=== PATIENT | male | born 1995 | race Caucasian/White ===

== ENCOUNTER 2016-11-23 12:13 | Emergency (ER) | payer OTHER ==
[~2016-11-23] VITALS: Ht 172.7 cm; Wt 61.3 kg
[2016-11-23 12:25] VITALS: BP 139/70; PULSE 68; RESP 16; TEMP 98.3; O2SAT 100
[2016-11-23 12:40] VITALS: O2SAT 100
[2016-11-23] MEDS ORDERED: SODIUM CHLORIDE 0.9% FLUSH 5 ML FLUSH IVF PRN (12:45)
--- NOTE | 2016-11-23 12:52 | PD ---
HPI Chief Complaint: Respiratory Symptoms Time Seen by Provider: 12:51 Travel History International Travel<30 days: No Contact w/Intl Traveler<30days: No Traveled to known affect area: No History of Present Illness HPI Patient is a 21-year-old male sent in with chief complaint of difficulty taking a deep breath and dizziness for one month. He reports this happens 4-5 times daily. They last for 20 minutes approximately. There are not exertional. 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 No palliative factors. He denies any syncopal episodes. He states he has felt fatigued however he does smoke tobacco and marijuana daily. Hedenies wheezing states for the last 2 weeks he has had a cough with light green sputum production. Her last several days he has had some intermittent left-sided right-sided lateral rib discomfort with coughing. He denies fever was as intermittent nasal congestion. Denies ear pain and sore throat. Denies myalgias. He states he gets the shortness of breath he will sometimes gets tingling in his toes or fingers. He has a history of depression and anxiety and states he is very stressed right now. Occasional alcohol use, denies any other illicit drugs. Denies myalgias, fevers, pedal edema or swelling, VILLAGRAN and history of DVT/PE. He does not have a PCP. Currently asymptomatic. [facility] Past Medical History Medical History: Denies Significant Hx Tetanus Vaccination: > 5 Years Influenza Vaccination: No Past Surgical History Surgical History: No Previous Surgery Social History Alcohol Use: Yes (Occ.) Tobacco Use: Yes (1/2 PPD) Substance Use: Yes (Marijuana daily) Allergies-Medications (Allergen,Severity, Reaction): Coded Allergies: No Known Allergies (Unverified , 11/23/16) Reported Meds & Prescriptions Reported Meds & Active Scripts Active No Active Prescriptions or Reported Medications Review of Systems Except as stated in HPI: all other systems reviewed are Neg Physical Exam Narrative GENERAL: Well-developed and well-nourished adult male in no acute distress. SKIN: Warm and dry. Good turgor without tenting. HEAD: Normocephalic and atraumatic. EYES: PERRL bilaterally, 5mm. EOMI bilaterally. No injection or icterus present. No proptosis. Lids without edema or erythema. ENT: Nasal mucosa pink and moist without discharge, septum intact and midline. Buccal mucosa pink and moist. Oropharynx free of erythema, tonsillar hypertrophy , masses, swelling, asymmetry and exudates. Uvula midline and airway patent. NECK: Supple, no meningeal signs. Trachea midline, no JVD. No cervical or facial lymphadenopathy. CARDIOVASCULAR: Regular rate and rhythm without murmurs, rubs, clicks or gallops. Radial and posterior tibial pulses 2+ bilaterally. No pedal edema. Negative bilateral Homans sign. RESPIRATORY: Clear to auscultation bilaterally with symmetrical rise and fall, no distress or use of accessory muscles. Speaks in full sentences. No stridor , tripoding or drooling. GASTROINTESTINAL: Non-tender, non-distended. Normal bowel sounds all 4 quadrants. No masses or organomegaly present. MUSCULOSKELETAL: Some tenderness to palpation of the anterior lateral ribs bilaterally without crepitus or step-offs. No gait disturbances. Patient freely moving all four extremities spontaneously. Extremities without clubbing, cyanosis, or edema. No obvious deformities. NEUROLOGIC: CN II-XII grossly intact. Awake and alert. Motor grossly within normal limits. Normal speech. PSYCHIATRIC: Appropriate mood and affect; insight and judgment normal. Data Data Last Documented VS Vital Signs Date Time Temp Pulse Resp B/P Pulse Ox O2 Delivery O2 Flow Rate FiO2 11/23/16 13:30 74 16 133/68 96 Room Air 133/71 11/23/16 12:25 98.3 Orders Electrocardiogram (11/23/16 12:42) Basic Metabolic Panel (Bmp) (11/23/16 12:42) Complete Blood Count With Diff (11/23/16 12:42) Magnesium (Mg) (11/23/16 12:42) Prothrombin Time / Inr (Pt) (11/23/16 12:42) Act Partial Throm Time (Ptt) (11/23/16 12:42) Troponin I (11/23/16 12:42) Ecg Monitoring (11/23/16 12:42) Bilateral Bp Monitoring (11/23/16 12:42) Iv Access Insert/Monitor (11/23/16 12:42) Oximetry (11/23/16 12:42) Oxygen Administration (11/23/16 12:42) Sodium Chloride 0.9% Flush (Ns Flush) (11/23/16 12:45) Chest, Pa & Lat (11/23/16 12:42) B-Type Natriuretic Peptide (11/23/16 12:42) D-Dimer (11/23/16 12:50) Labs Laboratory Tests Test 11/23/16 12:50 White Blood Count 8.5 TH/MM3 Red Blood Count 4.94 MIL/MM3 Hemoglobin 14.9 GM/DL Hematocrit 43.0 % Mean Corpuscular Volume 87.0 FL Mean Corpuscular Hemoglobin 30.1 PG Mean Corpuscular Hemoglobin 34.6 % Concent Red Cell Distribution Width 12.1 % Platelet Count 267 TH/MM3 Mean Platelet Volume 9.1 FL Neutrophils (%) (Auto) 63.2 % Lymphocytes (%) (Auto) 27.5 % Monocytes (%) (Auto) 7.2 % Eosinophils (%) (Auto) 1.3 % Basophils (%) (Auto) 0.8 % Neutrophils # (Auto) 5.4 TH/MM3 Lymphocytes # (Auto) 2.3 TH/MM3 Monocytes # (Auto) 0.6 TH/MM3 Eosinophils # (Auto) 0.1 TH/MM3 Basophils # (Auto) 0.1 TH/MM3 CBC Comment DIFF FINAL Differential Comment Prothrombin Time 12.0 SEC Prothromb Time International 1.1 RATIO Ratio Activated Partial 31.3 SEC Thromboplast Time D-Dimer Quantitative (PE/DVT) 0.20 MG/L FEU Sodium Level 143 MEQ/L Potassium Level 3.7 MEQ/L Chloride Level 106 MEQ/L Carbon Dioxide Level 30.0 MEQ/L Anion Gap 7 MEQ/L Blood Urea Nitrogen 12 MG/DL Creatinine 1.10 MG/DL Estimat Glomerular Filtration 84 ML/MIN Rate Random Glucose 95 MG/DL Calcium Level 9.4 MG/DL Magnesium Level 2.4 MG/DL Troponin I LESS THAN 0.02 NG/ML B-Type Natriuretic Peptide 3 PG/ML MDM Medical Decision Making Medical Screen Exam Complete: Yes Emergency Medical Condition: Yes Interpretation(s) Laboratory Tests Test 11/23/16 12:50 White Blood Count 8.5 TH/MM3 (4.0-11.0) Red Blood Count 4.94 MIL/MM3 (4.50-5.90) Hemoglobin 14.9 GM/DL (13.0-17.0) Hematocrit 43.0 % (39.0-51.0) Mean Corpuscular Volume 87.0 FL (80.0-100.0) Mean Corpuscular Hemoglobin 30.1 PG (27.0-34.0) Mean Corpuscular Hemoglobin 34.6 % Concent (32.0-36.0) Red Cell Distribution Width 12.1 % (11.6-17.2) Platelet Count 267 TH/MM3 (150-450) Mean Platelet Volume 9.1 FL (7.0-11.0) Neutrophils (%) (Auto) 63.2 % (16.0-70.0) Lymphocytes (%) (Auto) 27.5 % (9.0-44.0) Monocytes (%) (Auto) 7.2 % (0.0-8.0) Eosinophils (%) (Auto) 1.3 % (0.0-4.0) Basophils (%) (Auto) 0.8 % (0.0-2.0) Neutrophils # (Auto) 5.4 TH/MM3 (1.8-7.7) Lymphocytes # (Auto) 2.3 TH/MM3 (1.0-4.8) Monocytes # (Auto) 0.6 TH/MM3 (0-0.9) Eosinophils # (Auto) 0.1 TH/MM3 (0-0.4) Basophils # (Auto) 0.1 TH/MM3 (0-0.2) CBC Comment DIFF FINAL Differential Comment Prothrombin Time 12.0 SEC (9.8-11.6) Prothromb Time International 1.1 RATIO Ratio Activated Partial 31.3 SEC Thromboplast Time (24.3-30.1) D-Dimer Quantitative (PE/DVT) 0.20 MG/L FEU (0.00-0.50) Sodium Level 143 MEQ/L (136-145) Potassium Level 3.7 MEQ/L (3.5-5.1) Chloride Level 106 MEQ/L (98-107) Carbon Dioxide Level 30.0 MEQ/L (21.0-32.0) Anion Gap 7 MEQ/L (5-15) Blood Urea Nitrogen 12 MG/DL (7-18) Creatinine 1.10 MG/DL (0.60-1.30) Estimat Glomerular Filtration 84 ML/MIN (>89) Rate Random Glucose 95 MG/DL (74-106) Calcium Level 9.4 MG/DL (8.5-10.1) Magnesium Level 2.4 MG/DL (1.5-2.5) Troponin I LESS THAN 0.02 NG/ML (0.02-0.05) B-Type Natriuretic Peptide 3 PG/ML (0-100) Differential Diagnosis Acute bronchitis versus pneumonia versus arrhythmia versus anxiety versus dehydration versus substance abuse versus hypoglycemia versus electrolyte disorder ACS unlikely versus PE unlikely Narrative Course Patient is a 21-year-old male with daily tobacco and marijuana use was otherwise healthy presenting with 4-5 episodes of vomiting in the breath and lightheadedness without syncope for 1 month. Nasal cough and sputum production over the last 2 weeks and feels like he has a cold as he calls it. He does relate this to worsening symptoms. Yesterday she says some discomfort in the bilateral ribs anteriorly but no jessie chest pain or exertional pain. No history or signs of DVT. Oxygen saturation is 100% on room air and he is not tachypneic and has clear lung sounds with no increased work of breathing. No signs of overt heart failure. As this seems related to wearing a respirator and he has a history of anxiety and this is highly suggestive of panic disorder versus likely etiology however other emergent causes cannot be ruled out. Ordered EKG, chest x-ray and labs including troponin and d-dimer. EKG shows sinus rhythm with rate of 61. Normal intervals and axis. T-wave inversion in lead V2, no other ST-T changes. CBC unremarkable. Metabolic panel shows creatinine 1.10. Troponin less than 0.02. BNP 3. INR 1.1, d-dimer 0.20. Chest x-ray shows no acute cardiopulmonary disease. At this time there is no emergent expiration or cause for this patient's symptoms however given that he offers that he has had a lot of anxiety and stress and his symptoms sound similar distress response/panic disorder we'll prescribe hydroxyzine to help with this. He does have some costochondritis from likely cold symptoms and will prescribe diclofenac for this. Recommend he stop smoking and using marijuana daily as this will contribute chronic fatigue. Follow-up with his PCP for further evaluate in 2-3 days.See discharge paperwork for further instructions. The plan was discussed with the patient who acknowledged their understanding and agreement. Reinforced the follow-up with primary care is critically important. Patient instructed on emergent conditions that should prompt return to ED. Diagnosis Primary Impression: Dyspnea Qualified Code: R06.00 - Dyspnea, unspecified type Additional Impressions: Dizziness Costochondritis Anxiety Patient Instructions: Costochondritis (ED), Dizziness (ED), Dyspnea (ED), General Instructions Additional Instructions: Take medications as prescribed Recommend drinking lots of fluids to stay well-hydrated Recommend stop smoking cigarettes and marijuana as this will contribute to chronic fatigue and poor lung health Apply warm, moist heat to painful ribs every 1 to 2 hours as needed Avoid maneuvers that aggravate pain Important to take 10 full, deep breaths in and out every 30 minutes until pain resolves to avoid complications including pneumonia Follow-up with your PCP in 2-3 days Return to the ED with any acute worsening of symptoms Med/Other Pt SpecificInfo: Prescription(s) given Scripts Hydroxyzine HCl 25 Mg Tab25 Mg PO TID PRN (ANXIETY) #20 TAB Prov:Sofia Wylie MD 11/23/[address] 50 Mg Tabdr50 Mg PO BID #14 TAB Prov:Sofia Wylie MD 11/23/16 Disposition: 01 DISCHARGE HOME Condition: Stable Ricky Meyers III Nov 23, 2016 12:52
[2016-11-23 13:01] LABS: AUTOMATED NEUTROPHIL # 5.4 TH/MM3 (1.8-7.7); BASOPHIL # 0.1 TH/MM3 (0-0.2); BASOPHIL % 0.8 % (0.0-2.0); EOSINOPHIL # 0.1 TH/MM3 (0-0.4); EOSINOPHIL % 1.3 % (0.0-4.0); HEMO FLAGS DIFF FINAL; LYMPH % 27.5 % (9.0-44.0); LYMPHOCYTE # 2.3 TH/MM3 (1.0-4.8); MEAN CORPUSCULAR HEMOGLOBIN 30.1 PG (27.0-34.0); MEAN CORPUSCULAR HGB CONC 34.6 % (32.0-36.0); MONO % 7.2 % (0.0-8.0); NEUT % 63.2 % (16.0-70.0); PLATELET COUNT 267 TH/MM3 (150-450); RED BLOOD COUNT 4.94 MIL/MM3 (4.50-5.90); RED CELL DISTRIBUTION WIDTH 12.1 % (11.6-17.2); WHITE BLOOD COUNT 8.5 TH/MM3 (4.0-11.0)
[2016-11-23 13:09] LABS: CHLORIDE 106 MEQ/L (98-107); POTASSIUM 3.7 MEQ/L (3.5-5.1); SODIUM (NA) 143 MEQ/L (136-145)
[2016-11-23 13:12] LABS: ANION GAP 7 MEQ/L (5-15); BLOOD UREA NITROGEN 12 MG/DL (7-18); MAGNESIUM 2.4 MG/DL (1.5-2.5)
[2016-11-23 13:15] LABS: GLOMERULAR FILTRATION RATE 84 ML/MIN (>89)
[2016-11-23 13:19] LABS: APTT (PATIENT) 31.3 SEC (24.3-30.1); INTERNATIONAL NORMALIZED RATIO 1.1 RATIO
[2016-11-23 13:30] VITALS: BP_SYST 133; BP_DIAS 68; BP_DIAS 71; PULSE 74; RESP 16; O2SAT 96
--- NOTE | 2016-11-23 13:32 | RADHPO ---
EXAM DATE/TIME: 11/23/2016 13:02 [facility] COMPARISON: No previous studies available for comparison. INDICATIONS : Chest pain MEDICAL HISTORY : None. SURGICAL HISTORY : None. ENCOUNTER: Initial ACUITY: 3 days PAIN SCORE: 8/10 LOCATION: Bilateral chest FINDINGS: PA and lateral views of the chest demonstrate the lungs to be symmetrically aerated without evidence of mass, infiltrate or effusion. The cardiomediastinal contours are unremarkable. Osseous structure s are intact. CONCLUSION: No acute disease. Ricky Goodrich MD on November 23, 2016 at 13:30 Board Certified Radiologist. This report was verified electronically.
[2016-11-23] MEDS ORDERED: HYDR-3133 PO (13:40)
[2016-11-23] MEDS ORDERED: DICL50TA3 PO (13:40)
--- NOTE | 2016-11-24 14:12 | EKG ---
Date Performed: 11/23/2016 Time Performed: 13:00:16 PTAGE: 21 years EKG: Sinus arrhythmia Septal T wave changes are borderline abnormal Borderline ECG NO PREVIOUS TRACING DOCTOR: Jorge Wilkinson Interpretating Date/Time 11/24/2016 14:10:19
== END 2016-11-23 14:00 | disposition home or self-care (01) ==
LOC: PHEFT 12:13
DX: R06.00 Dyspnea, unspecified (principal); R42 Dizziness and giddiness; M94.0 Chondrocostal junction syndrome [Tietze]; I49.8 Other specified cardiac arrhythmias; F41.9 Anxiety disorder, unspecified; F17.210 Nicotine dependence, cigarettes, uncomplicated
CPT/HCPCS: 71020; 80048; 83735; 83880; 84484; 85025; 85379; 85610; 85730; 93005

== ENCOUNTER 2017-04-04 17:34 | Emergency (ER) | payer OTHER ==
[~2017-04-04] VITALS: Ht 170.2 cm; Wt 62.0 kg
[~2017-04-04 17:34] MED LIST: DICL50TA3 PO; HYDR-3133 PO
[2017-04-04 17:38] VITALS: BP 133/68; PULSE 53; RESP 16; TEMP 98.3; O2SAT 98
--- NOTE | 2017-04-04 17:47 | PD ---
HPI Chief Complaint: Skin Problem Time Seen by Provider: 17:44 Travel History International Travel<30 days: No Contact w/Intl Traveler<30days: No Traveled to known affect area: No History of Present Illness HPI 21 year old male presents to the ED for evaluation of one week history of painful, reddened "bump" of the skin of the right anterolateral abdomen. He denies fever, chills, nausea, vomiting. Patient denies injury to the area. He denies previous history of MRSA. States that he had a similar bump in the same area which healed on its own. PFSH Social History Alcohol Use: Yes (Occ.) Tobacco Use: Yes (1/2 PPD) Substance Use: Yes (Marijuana daily) Allergies-Medications (Allergen,Severity, Reaction): Coded Allergies: No Known Allergies (Unverified , 04/04/17) Reported Meds & Prescriptions Reported Meds & Active Scripts Active Keflex (Cephalexin) 250 Mg Cap 250 Mg PO Q6H 10 Days Bactrim DS (Sulfamethoxazole-Trimethoprim) 800-160 Mg Tab 1 Tab PO BID Review of Systems Except as stated in HPI: all other systems reviewed are Neg Physical Exam Narrative GENERAL: Well-nourished, well-developed white male in no acute distress. SKIN: Focused skin assessment warm/dry.SKIN: There is an indurated area in the right anterior lateral abdomen which measures about 4 cm in diameter. It is fluctuant but there is no pointing or drainage. There is a zone of inflammation around it but no lymphangitis. HEAD: Normocephalic. EYES: No scleral icterus. No injection or drainage. NECK: Supple, trachea midline. No JVD or lymphadenopathy. CARDIOVASCULAR: Regular rate and rhythm without murmurs, gallops, or rubs. RESPIRATORY: Breath sounds equal bilaterally. No accessory muscle use. GASTROINTESTINAL: Abdomen soft, non-tender, nondistended. MUSCULOSKELETAL: No cyanosis, or edema. Ambulatory and moves extremities spontaneously. BACK: Nontender without obvious deformity. No CVA tenderness. Data Data Last Documented VS Vital Signs Date Time Temp Pulse Resp B/P Pulse Ox O2 Delivery O2 Flow Rate FiO2 04/04/17 17:38 98.3 53 16 133/68 98 Orders Wound Culture And Gram Stain (04/04/17 17:55) MDM Medical Decision Making Medical Screen Exam Complete: Yes Emergency Medical Condition: Yes Differential Diagnosis Insect bite versus abscess versus cellulitis versus furuncle versus carbuncle versus other Narrative Course 21 year old male presents to the ED for evaluation of one week history of painful, reddened "bump" of the skin of the right anterolateral abdomen. He denies fever, chills, nausea, vomiting. Patient denies injury to the area. He denies previous history of MRSA. States that he had a similar bump in the same area which healed on its own. Vitals reviewed. physical exam reveals an indurated area in the right anterior lateral abdomen which measures about 4 cm in diameter. It is fluctuant but there is no pointing or drainage. There is a zone of inflammation around it but no lymphangitis. Abscess I&D was performed. Wound culture was sent. Please see my procedure note for details. Patient was prescribed Bactrim and Keflex. He is instructed to keep the wound clean, dry, covered, take all medication as prescribed, return for worsening of symptoms. He indicated understanding of instructions and is agreeable to the care plan. The patient is stable and discharged home. Procedures Procedure Narrative INCISION AND DRAINAGE OF ABSCESS: The area was prepped and was sterilely draped. A subcutaneous wheal of 1 % Xylocaine with epinephrine with a total number 3 mL was used to anesthetize the area properly. A number 11 scalpel was used to make a 1.25-cm incision across the area of the abscess. The abscess was drained, complex loculations were broken down, and irrigated with normal saline. Cultures were obtained. Sterile dressing applied. Patient advised to keep the wound clean and dry and covered. Diagnosis Primary Impression: Abscess Referrals: Primary Care Physician Patient Instructions: Abscess Incision and Drainage (ED), General Instructions Additional Instructions: Rest, hydrate. Do not change the dressing for 24 hours You may bathe normally. Do not submerge the wound. After bathing pat of wound dry. Allow the wound to air dry. Apply a clean, dry dressing. Take the antibiotics as they are prescribed, even if your symptoms resolve. Utilize [id number] pain medications, as described on the label, as needed. Follow-up with your primary care provider this week. Return to the ED for any urgent or emergent medical condition. Med/Other Pt SpecificInfo: Prescription(s) given Scripts Cephalexin (Keflex)250 Mg Mvd299 Mg PO Q6H 10 Days Ref 0 Prov:Sofia Wylie MD 04/04/17 Sulfamethoxazole-Trimethoprim (Bactrim DS)800-160 Mg Tab1 Tab PO BID #14 TAB Ref 0 Prov:Sofia Wylie MD 04/04/17 Disposition: 01 DISCHARGE HOME Condition: Stable Arianne Willingham April 04, 2017 17:47
[2017-04-04] MEDS ORDERED: CEPH-459 PO (17:54)
[2017-04-04] MEDS ORDERED: BACT800T5 PO (17:54)
== END 2017-04-04 18:19 | disposition home or self-care (01) ==
LOC: PHEFT 17:34
DX: L02.211 Cutaneous abscess of abdominal wall (principal); F17.200 Nicotine dependence, unspecified, uncomplicated
CPT/HCPCS: 10060; 86403; 87070; 87186; 87205

== ENCOUNTER 2017-05-29 11:47 | Emergency (ER) | payer OTHER ==
[~2017-05-29] VITALS: Ht 170.2 cm; Wt 61.0 kg
[~2017-05-29 11:47] MED LIST changes: +BACT800T5 PO; +CEPH-459 PO; -DICL50TA3 PO; -HYDR-3133 PO
[2017-05-29 11:48] VITALS: BP 119/65; PULSE 54; RESP 18; TEMP 98.2; O2SAT 99
[2017-05-29] MEDS ORDERED: SODIUM CHLORIDE 0.9% FLUSH 10 ML FLUSH IV FLUSH PRN (12:00)
[2017-05-29] MEDS ORDERED: ONDANSETRON HCL 4 MG/2 ML VIAL IVP ONE (12:00)
[2017-05-29] MEDS ORDERED: PANTOPRAZOLE SODIUM 40 MG VIAL IVP ONE (12:00)
[2017-05-29] MEDS ORDERED: SODIUM CHLOR 0.9% 1000 ML INJ 1,000 ML IV SCH (12:00)
--- NOTE | 2017-05-29 12:06 | PD ---
HPI Chief Complaint: GI Complaint Time Seen by Provider: 12:03 Travel History International Travel<30 days: No Contact w/Intl Traveler<30days: No Traveled to known affect area: No History of Present Illness HPI 21-year-old male with history of no significant past medical issues, presents to the ER today because he woke up this morning nauseous, vomiting, and vomited up some red blood. He is nauseous currently but denies any diarrhea, fevers, or other symptoms. He states that he feels like he is nauseous and there is some burning in his abdomen. He does not know any sick contacts or bad food exposure. Modifying Factors: None Associated Signs & Symptoms: Nausea, vomiting, vomiting blood Risk Factors: None PFSH Past Medical History Diminished Hearing: No Social History Alcohol Use: Yes (Occ.) Tobacco Use: Yes (1/2 PPD) Substance Use: Yes (Marijuana daily) Allergies-Medications (Allergen,Severity, Reaction): Coded Allergies: No Known Allergies (Unverified , 05/29/17) Reported Meds & Prescriptions Reported Meds & Active Scripts Active Reported [Marijuana] INH DIRECTED Review of Systems Except as stated in HPI: all other systems reviewed are Neg Physical Exam Narrative GENERAL: [Well-developed young white male patient currently in mild distress. Awake and oriented 3. SKIN: Focused skin assessment warm/dry. HEAD: Atraumatic. Normocephalic. EYES: Pupils equal and round. No scleral icterus. No injection or drainage. ENT: No nasal bleeding or discharge. Mucous membranes pink and moist. NECK: Trachea midline. No JVD. CARDIOVASCULAR: Regular rate and rhythm. No murmur appreciated. RESPIRATORY: No accessory muscle use. Clear to auscultation. Breath sounds equal bilaterally. GASTROINTESTINAL: Abdomen soft, non-tender, nondistended. Hepatic and splenic margins not palpable. Benign. MUSCULOSKELETAL: No obvious deformities. No clubbing. No cyanosis. No edema. NEUROLOGICAL: Awake and alert. No obvious cranial nerve deficits. Motor grossly within normal limits. Normal speech. PSYCHIATRIC: Appropriate mood and affect; insight and judgment normal. Data Data Last Documented VS Vital Signs Date Time Temp Pulse Resp B/P Pulse Ox O2 Delivery O2 Flow Rate FiO2 05/29/17 12:32 16 100 Room Air 05/29/17 11:48 98.2 54 119/65 Orders Complete Blood Count With Diff (05/29/17 12:00) Comprehensive Metabolic Panel (05/29/17 12:00) Lipase (05/29/17 12:00) Iv Access Insert/Monitor (05/29/17 12:00) Ecg Monitoring (05/29/17 12:00) Oximetry (05/29/17 12:00) Ondansetron Inj (Zofran Inj) (05/29/17 12:00) Pantoprazole Inj (Protonix Inj) (05/29/17 12:00) Sodium Chlor 0.9% 1000 Ml Inj (Ns 1000 M (05/29/17 12:00) Sodium Chloride 0.9% Flush (Ns Flush) (05/29/17 12:00) Abdomen, Flat & Upright (05/29/17 12:04) Labs Laboratory Tests Test 05/29/17 12:10 White Blood Count 7.4 TH/MM3 Red Blood Count 4.93 MIL/MM3 Hemoglobin 14.5 GM/DL Hematocrit 43.7 % Mean Corpuscular Volume 88.6 FL Mean Corpuscular Hemoglobin 29.5 PG Mean Corpuscular Hemoglobin 33.3 % Concent Red Cell Distribution Width 12.0 % Platelet Count 162 TH/MM3 Mean Platelet Volume 10.1 FL Neutrophils (%) (Auto) 65.1 % Lymphocytes (%) (Auto) 25.8 % Monocytes (%) (Auto) 7.0 % Eosinophils (%) (Auto) 1.2 % Basophils (%) (Auto) 0.9 % Neutrophils # (Auto) 4.8 TH/MM3 Lymphocytes # (Auto) 1.9 TH/MM3 Monocytes # (Auto) 0.5 TH/MM3 Eosinophils # (Auto) 0.1 TH/MM3 Basophils # (Auto) 0.1 TH/MM3 CBC Comment DIFF FINAL Differential Comment Sodium Level 144 MEQ/L Potassium Level 3.6 MEQ/L Chloride Level 110 MEQ/L Carbon Dioxide Level 28.0 MEQ/L Anion Gap 6 MEQ/L Blood Urea Nitrogen 13 MG/DL Creatinine 1.10 MG/DL Estimat Glomerular Filtration 84 ML/MIN Rate Random Glucose 101 MG/DL Calcium Level 9.2 MG/DL Total Bilirubin 0.6 MG/DL Aspartate Amino Transf 16 U/L (AST/SGOT) Alanine Aminotransferase 19 U/L (ALT/SGPT) Alkaline Phosphatase 61 U/L Total Protein 7.7 GM/DL Albumin 4.2 GM/DL Lipase 77 U/L [facility] Medical Decision Making Medical Screen Exam Complete: Yes Emergency Medical Condition: Yes Medical Record Reviewed: Yes Interpretation(s) Laboratory Tests Test 05/29/17 12:10 Chloride Level 110 MEQ/L (98-107) Estimat Glomerular Filtration 84 ML/MIN (>89) Rate Differential Diagnosis Nausea, vomiting, mildly bloodgastritis versus gastric ulcer versus gastroenteritis versus GI bleed Narrative Course X-ray did not show any signs of acute obstruction or free air. Lab work shows no signs of significant dehydration or metabolic issues. Abdomen is fairly benign and I do not suspect an acute intra-abdominal process. Symptoms are likely secondary to gastritis or irritation from the vomiting. Initially, he had normal vomitus followed by the red vomitus. At this point, patient had been given Zofran, Protonix, and IV fluids. On reevaluation at 12:40 PM, he is feeling improved, no more vomiting, and at this point my plan would be to release him with follow-up to primary care physician. Return for any worsening in symptoms as needed. The plan has been discussed with the patient and he is agreeable. Diagnosis Primary Impression: Hematemesis/vomiting blood Additional Impression: Gastritis Med/Other Pt SpecificInfo: Prescription(s) given Scripts Ondansetron Odt (Zofran Odt)4 Mg Tab4 Mg SL Q6HR PRN (Nausea/Vomiting) #7 TAB Ref 0 Prov:Sofia Wylie MD 05/29/17 Ranitidine (Zantac)150 Mg Lny021 Mg PO BID #20 TAB Ref 0 Prov:Sofia Wylie MD 05/29/17 Disposition: 01 DISCHARGE HOME Condition: Stable Sofia Wylie MD May 29, 2017 12:06
[2017-05-29 12:18] LABS: AUTOMATED NEUTROPHIL # 4.8 TH/MM3 (1.8-7.7); BASOPHIL # 0.1 TH/MM3 (0-0.2); BASOPHIL % 0.9 % (0.0-2.0); EOSINOPHIL # 0.1 TH/MM3 (0-0.4); EOSINOPHIL % 1.2 % (0.0-4.0); HEMATOCRIT 43.7 % (39.0-51.0); LYMPH % 25.8 % (9.0-44.0); LYMPHOCYTE # 1.9 TH/MM3 (1.0-4.8); MEAN CELL VOLUME 88.6 FL (80.0-100.0); MEAN CORPUSCULAR HEMOGLOBIN 29.5 PG (27.0-34.0); MEAN CORPUSCULAR HGB CONC 33.3 % (32.0-36.0); NEUT % 65.1 % (16.0-70.0); PLATELET COUNT 162 TH/MM3 (150-450); RED BLOOD COUNT 4.93 MIL/MM3 (4.50-5.90); WHITE BLOOD COUNT 7.4 TH/MM3 (4.0-11.0)
[2017-05-29] MEDS ORDERED: MARIJUANA INH (12:19)
[2017-05-29 12:25] LABS: HEMO FLAGS DIFF FINAL
[2017-05-29 12:28] LABS: CHLORIDE 110 MEQ/L (98-107); POTASSIUM 3.6 MEQ/L (3.5-5.1); SODIUM (NA) 144 MEQ/L (136-145)
--- NOTE | 2017-05-29 12:29 | RADRPT ---
EXAM DATE/TIME: 05/29/2017 12:12 [facility] COMPARISON: No previous studies available for comparison. INDICATIONS : Nausea, vomiting. MEDICAL HISTORY : None. SURGICAL HISTORY : None. ENCOUNTER: Initial ACUITY: 1 day PAIN SCORE: 0/10 LOCATION: Bilateral abdomen FINDINGS: Supine and upright views of the abdomen were performed. The abdominal bowel gas pattern is normal. No air fluid levels are seen. No abnormal masses, calcifications, or organomegaly is seen. The visu alized lower lungs are clear. No evidence of free intraperitoneal gas. The osseous structures are u nremarkable. CONCLUSION: Normal examination. Indio Michaud MD on May 29, 2017 at 12:28 Board Certified Radiologist. This report was verified electronically.
[2017-05-29 12:32] VITALS: RESP 16; O2SAT 100
[2017-05-29 12:32] LABS: ANION GAP 6 MEQ/L (5-15); BLOOD UREA NITROGEN 13 MG/DL (7-18)
[2017-05-29 12:35] LABS: ALT (GPT) 19 U/L (12-78); AST (GOT) 16 U/L (15-37); GLOMERULAR FILTRATION RATE 84 ML/MIN (>89)
[2017-05-29 12:36] LABS: TOTAL BILIRUBIN ADULT 0.6 MG/DL (0.2-1.0)
[2017-05-29 12:38] LABS: ALKALINE PHOSPHATASE 61 U/L (45-117)
[2017-05-29] MEDS ORDERED: ZANT150T2 PO (12:45)
[2017-05-29] MEDS ORDERED: ZOFR4TAB3 SL (12:45)
[2017-05-29 13:20] VITALS: BP 124/61; PULSE 45; RESP 16; O2SAT 98
== END 2017-05-29 13:20 | disposition home or self-care (01) ==
LOC: PHED 11:47
DX: K92.0 Hematemesis (principal); K29.70 Gastritis, unspecified, without bleeding
CPT/HCPCS: 74020; 80053; 83690; 85025; 96361; 96374; 96375; 99284; C9113; J2405; J7030